=== PATIENT | female | born 1970 | race African-American/Black ===

== ENCOUNTER → 2020-09-13 | Outpatient (CLI) | payer SELFPAY ==
[~2020-09-13] MED LIST: ASCO500C PO; ELDE1CAP PO; MAGN400C PO; MULT-735 PO; TURM538C PO
== END ==
LOC: LAB 10:00
PROVIDERS: ATTEND Nurse Anesthetist, Certified Registered
DX: Z01.812 Encounter for preprocedural laboratory examination (principal); Z20.822 Contact with and (suspected) exposure to COVID-19; Z12.11 Encounter for screening for malignant neoplasm of colon
CPT/HCPCS: U0003

== ENCOUNTER → 2020-09-17 | Day surgery (SDC) | payer OTHER ==
[~2020-09-17] MED LIST changes: +IV RINGERS SOLUTION,LACTATED 1,000 ML IV ONE; +IV RINGERS SOLUTION,LACTATED 1,000 ML IV SCH; +LIDOCAINE 2% PF 5 ML VIAL. ONE; +PROPOFOL 10,000 MCG/ML (20ML) VIAL IV ONE
== END | disposition home or self-care (01) ==
LOC: SURG 09:50 → EDUNIT# 10:30
PROVIDERS: ATTEND Internal Medicine Gastroenterology
DX: Z12.11 Encounter for screening for malignant neoplasm of colon (principal); Z79.899 Other long term (current) drug therapy; Z72.89 Other problems related to lifestyle
CPT/HCPCS: 45378; J2001; J2704; J7120